=== PATIENT | male | born 1960 | race African-American/Black ===

== ENCOUNTER 2017-12-24 07:16 | Day surgery (SDC) | payer MEDICAID ==
[~2017-12-24] VITALS: Ht 177.8 cm; Wt 94.3 kg
[2017-12-24] MEDS ORDERED: CLOP75TA16 MT (08:29)
[2017-12-24] MEDS ORDERED: LISI10TA5 MT (08:29)
[2017-12-24] MEDS ORDERED: METO25TA6 MT (08:29)
[2017-12-24] MEDS ORDERED: ATOR-2 MT (08:29)
[2017-12-24] MEDS ORDERED: ASPI-986 MT (08:29)
[2017-12-24] MEDS ORDERED: CHLO25TA2 MT (08:29)
[2017-12-24] MEDS ORDERED: NITR0.4T49 SL (08:37)
[2017-12-24 08:38] LABS: HEMATOCRIT 51.3 % (42.0-52.0); HEMOGLOBIN 17.2 g/dL (14.0-18.0); MEAN CORPUSCULAR HEMOGLOBIN 30.9 pg (28.0-32.0); MEAN CORPUSCULAR VOLUME 92.3 fL (80.0-94.0); PLATELET 185 x1000/uL (130-400); RED BLOOD CELL COUNT 5.56 mill/uL (4.7-6.1); RED CELL DISTRIBUTION WIDTH 17.2 % (11.6-14.6)
[2017-12-24 08:45] LABS: CHLORIDE 108 mEq/L (98-107)
[2017-12-24 08:48] LABS: PARTIAL THROMBOPLASTIN TIME 29.2 sec (23.4-31.0); PROTHROMBIN TIME 10.4 sec (9.1-11.1)
[2017-12-24] MEDS ORDERED: LIDOCAINE HCL 1% 20ML VIAL (Pyxis) INJ ONE (11:20)
[2017-12-24] MEDS ORDERED: IODIXANOL 320MG/ML 100 ML BOTTLE IV ONE (11:21)
[2017-12-24] MEDS ORDERED: MIDAZOLAM HCL 2 MG/2 ML VIAL ONE (11:49)
[2017-12-24] MEDS ORDERED: FENTANYL CITRATE/PF 50MCG/ML 2ML VIAL ONE (11:50)
[2017-12-24] MEDS ORDERED: MORPHINE SULFATE 4 MG/ML CPJ (NOT FOR IM USE) IV PRN (12:30)
[2017-12-24] MEDS ORDERED: ACETAMINOPHEN 325MG TABLET PO PRN (12:30)
[2017-12-24] MEDS ORDERED: ONDANSETRON HCL 4MG/2ML INJ IV PRN (12:30)
[2017-12-24] MEDS ORDERED: HEPARIN SODIUM 1,000 UNIT/1ML VIAL IV ONE (13:51)
[2017-12-24] MEDS ORDERED: NICARDIPINE 100MCG/ML 10ML VIAL (CATH LAB) IV ONE (13:51)
[2017-12-24] MEDS ORDERED: NITROGLYCERIN 50MCG/ML 10ML VIAL (CATH LAB) IV ONE (13:51)
== END 2017-12-24 15:05 | disposition home or self-care (01) ==
LOC: CCL 07:16
PROVIDERS: ATTEND Internal Medicine Cardiovascular Disease
DX: I25.10 Atherosclerotic heart disease of native coronary artery without angina pectoris (principal); F17.200 Nicotine dependence, unspecified, uncomplicated; I10 Essential (primary) hypertension; Z79.899 Other long term (current) drug therapy; Z79.82 Long term (current) use of aspirin; Z79.01 Long term (current) use of anticoagulants; Z98.890 Other specified postprocedural states
CPT/HCPCS: 36415; 80048; 85027; 85610; 85730; 93005; 93458; 99152; C1769; C1887; C1893; J1644; J2250; J3010; J3490; Q9967

== ENCOUNTER 2025-02-18 19:11 | Inpatient (IN) | payer MEDICAID ==
[~2025-02-18] VITALS: Ht 180.3 cm; Wt 90.7 kg
[~2025-02-18 19:11] MED LIST: ASPI-986 MT; ATOR-2 MT; CHLO25TA2 MT; CLOP-31 MT; LISI10TA26 MT; METO25TA6 MT; NITR0.4T49 SL
[2025-02-18 19:14] VITALS: O2SAT 96
[2025-02-18] MEDS: SODIUM CHLORIDE 0.9% (SEPSIS BOLUS) IV ONE (19:55)
[2025-02-18] MEDS: GENTAMICIN 80MG PREMIX 100 ML IV ONE (19:57)
[2025-02-18 20:06] LABS: BASOPHILS % 0.7 % (0.0-2.0); EOSINOPHILS % 0.2 % (0.0-5.0); HEMATOCRIT. 42.3 % (42.0-52.0); HEMOGLOBIN. 13.6 g/dL (14.0-18.0); LYMPHOCYTES % 10.5 % (20.0-50.0); MEAN PLATELET VOLUME 9.1 fl (7.4-10.4); MONOCYTES % 4.9 % (2.0-8.0); NEUTROPHILS % 83.7 % (40.0-76.0); PLATELET 535 x1000/uL (130-400); RED BLOOD CELL COUNT 5.24 mill/uL (4.7-6.1); RED CELL DISTRIBUTION WIDTH 18.1 % (11.6-14.6)
[2025-02-18 20:20] LABS: INR 1.1
[2025-02-18 20:21] LABS: CREATININE 1.1 mg/dL (0.6-1.3); UREA NITROGEN BLOOD 16 mg/dL (9-23)
[2025-02-18 20:22] LABS: PROTEIN TOTAL 9.1 g/dL (6.0-8.3)
[2025-02-18 20:23] LABS: ASPARTATE AMINOTRANSFERASE 34 IU/L (<34); BILIRUBIN DIRECT 0.2 mg/dL (<=3.0); BILIRUBIN TOTAL 0.5 mg/dL (0.1-1.0); TROPONIN I HIGH SENSITIVITY 18 ng/L (3.0-53)
[2025-02-18] MEDS: MORPHINE SULFATE 2 MG/ML INJ (NOT FOR IM USE) IV SCH (22:06)
[2025-02-18 22:28] LABS: CLARITY URINE TURBID (CLEAR); GLUCOSE URINE NEGATIVE (NEGATIVE); KETONES URINE 3+ (NEGATIVE); LEUKOCYTE ESTERASE URINE 3+ (NEGATIVE); NITRITE URINE POSITIVE (NEGATIVE); OCCULT BLOOD URINE 2+ (NEGATIVE); PH URINE 8.0 (4.5-8.0); PROTEIN URINE 3+ (NEGATIVE); SPECIFIC GRAVITY URINE 1.027 (1.005-1.030); UROBILINOGEN URINE 1.0 E.U./dL (0.2-1.0)
[2025-02-18 23:02] LABS: COLOR URINE YELLOW (YELLOW)
[2025-02-18 23:05] LABS: BACTERIA URINE 2+; MUCUS URINE 2+ /lpf (NONE/TRACE); SQUAMOUS EPITHELIAL CELL URINE RARE /lpf (RARE/1+); TRIPLE PHOSPHATE CRYSTAL URINE 1+ /lpf; WBC URINE TNTC /hpf (0-2)
[2025-02-18 23:30] VITALS: BP 142/88; PULSE 117; RESP 26; TEMP 37.0852
[2025-02-19] VITALS: BP 124/73; PULSE 110; RESP 22; TEMP 37.1; O2SAT 93
[2025-02-19 04:00] VITALS: BP 116/96; PULSE 96; RESP 20; TEMP 36.8; O2SAT 100
[2025-02-19 08:00] VITALS: BP 108/66; PULSE 99; RESP 20; TEMP 36.3; O2SAT 97
[2025-02-19 08:07] LABS: BASOPHILS % 0.4 % (0.0-2.0); EOSINOPHILS % 0.3 % (0.0-5.0); HEMATOCRIT. 36.8 % (42.0-52.0); HEMOGLOBIN. 11.8 g/dL (14.0-18.0); LYMPHOCYTES % 12.6 % (20.0-50.0); MEAN PLATELET VOLUME 9.4 fl (7.4-10.4); MONOCYTES % 6.4 % (2.0-8.0); NEUTROPHILS % 80.3 % (40.0-76.0); PLATELET 493 x1000/uL (130-400); RED BLOOD CELL COUNT 4.61 mill/uL (4.7-6.1); RED CELL DISTRIBUTION WIDTH 18.0 % (11.6-14.6)
[2025-02-19 08:18] LABS: CREATININE 0.8 mg/dL (0.6-1.3); UREA NITROGEN BLOOD 17 mg/dL (9-23)
[2025-02-19 08:20] LABS: ASPARTATE AMINOTRANSFERASE 40 IU/L (<34); BILIRUBIN TOTAL 0.3 mg/dL (0.1-1.0)
[2025-02-19] MEDS: LISINOPRIL 10MG TABLET PO SCH (09:00)
[2025-02-19] MEDS: METOPROLOL TARTRATE 25MG TABLET PO SCH (09:00)
[2025-02-19 09:21] LABS: PROTEIN TOTAL 6.8 g/dL (6.0-8.3)
[2025-02-19] MEDS: ENOXAPARIN 40MG/0.4ML SYR SUBCUT SCH (10:55)
[2025-02-19] MEDS: ASPIRIN 81MG EC TABLET PO SCH (10:56)
[2025-02-19] MEDS: CLOPIDOGREL 75MG TABLET PO SCH (10:56)
[2025-02-19] MEDS: CEFTRIAXONE 1GM/50ML 50 ML IV SCH (10:56)
[2025-02-19] MEDS: TAMSULOSIN HCL 0.4MG SR CAPSULE PO SCH (10:56)
[2025-02-19] MEDS: DIPHENHYDRAMINE 50MG/ML VIAL IV NR (13:20)
[2025-02-19 16:00] VITALS: BP 117/89; PULSE 102; RESP 18; TEMP 36.3; O2SAT 97
[2025-02-19 20:00] VITALS: BP 127/81; PULSE 107; RESP 16; TEMP 37; O2SAT 97
[2025-02-19] MEDS ORDERED: GUAIFENESIN-DM 200MG-20MG/10ML UDC PO PRN (20:00)
[2025-02-19] MEDS: ATORVASTATIN CALCIUM 40MG TABLET PO SCH (22:26)
[2025-02-19] MEDS ORDERED: IOHEXOL-300 100 ML BOTTLE ONE (23:43)
[2025-02-20] VITALS: BP 107/78; PULSE 91; RESP 16; TEMP 36.8; O2SAT 100
[2025-02-20 04:00] VITALS: BP 106/51; PULSE 83; RESP 16; TEMP 36.8; O2SAT 96
[2025-02-20 07:46] LABS: BASOPHILS % 0.4 % (0.0-2.0); EOSINOPHILS % 1.6 % (0.0-5.0); HEMATOCRIT. 36.1 % (42.0-52.0); HEMOGLOBIN. 11.6 g/dL (14.0-18.0); LYMPHOCYTES % 20.8 % (20.0-50.0); MEAN PLATELET VOLUME 9.2 fl (7.4-10.4); MONOCYTES % 6.1 % (2.0-8.0); NEUTROPHILS % 71.1 % (40.0-76.0); PLATELET 435 x1000/uL (130-400); RED BLOOD CELL COUNT 4.57 mill/uL (4.7-6.1); RED CELL DISTRIBUTION WIDTH 18.2 % (11.6-14.6)
[2025-02-20 07:56] LABS: CREATININE 0.9 mg/dL (0.6-1.3); UREA NITROGEN BLOOD 11 mg/dL (9-23)
[2025-02-20 08:00] VITALS: BP 107/60; PULSE 85; RESP 18; TEMP 36.7; O2SAT 96
[2025-02-20] MEDS ORDERED: TAMS-54 MT (09:13)
[2025-02-20] MEDS ORDERED: LEVO750T68 MT (09:13)
[2025-02-20] MEDS: PREDNISONE 20MG TABLET PO SCH (09:29)
[2025-02-20] MEDS: LEVOFLOXACIN 750MG PREMIX 150 ML IV SCH (10:04)
[2025-02-20] MEDS ORDERED: FINASTERIDE 5MG TABLET PO SCH (10:15)
[2025-02-20 10:21] VITALS: BP 103/65; PULSE 88; RESP 17; TEMP 97.4
[2025-02-20 12:00] VITALS: BP 107/72; PULSE 62; RESP 18; TEMP 36.8; O2SAT 95
== END 2025-02-20 15:45 | disposition home or self-care (01) | DRG 720 ==
LOC: ER 19:11 → MICUSO 21:29 → EDBEDREQTM 22:07 → EDBEDREQ 22:07 → ENRESERV 22:25 → 5WST 02-19 05:55
PROVIDERS: ADMIT Internal Medicine; ATTEND Internal Medicine
DX: A41.9 Sepsis, unspecified organism (principal); I69.351 Hemiplegia and hemiparesis following cerebral infarction affecting right dominant side; N39.0 Urinary tract infection, site not specified; D64.9 Anemia, unspecified; I10 Essential (primary) hypertension; N40.0 Benign prostatic hyperplasia without lower urinary tract symptoms; R91.8 Other nonspecific abnormal finding of lung field; I25.10 Atherosclerotic heart disease of native coronary artery without angina pectoris; J98.19 Other pulmonary collapse; E78.5 Hyperlipidemia, unspecified; I25.2 Old myocardial infarction; Z88.0 Allergy status to penicillin
CPT/HCPCS: 36415; 71045; 71260; 80048; 80053; 80076; 81003; 83605; 84145; 84484; 85025; 87077; 87186; 93005; 99291; A4606; A4615; J0696; J1200; J1580; J1650; J1956; J2270; J7030; J7512; Q9967